=== PATIENT | female | born 1975 | race Caucasian/White ===

== ENCOUNTER → 2018-08-17 08:36 | Outpatient (CLI) | payer BC, SELFPAY ==
--- NOTE | 2018-08-17 08:38 | BI_ITS ---
MAMMOGRAPHY - BILATERAL SCREENING REASON FOR EXAM: Female, 43 years old. Routine annual screening examination. PERTINENT HISTORY: Non-contributory. TECHNIQUE: Digital bilateral breast selam (3D mammographic acquisition) in the CC and MLO projections. 2-D mediolateral oblique (MLO) and craniocaudad (CC) views of both breasts were obtained. CAD: Full Field Digital Mammography with Computer Added Detection was performed. COMPARISON: Comparison is made with prior outside examination dated September 11, 2016. FINDINGS: Breast Composition: The breasts are heterogeneously dense, which may obscure small masses. There are no dominant masses or suspicious calcifications. Stable small bilateral axillary lymph nodes. No other significant abnormalities are identified. There has been no significant change since the prior study. BI/SCREENING MAMM (CAD), BILAT IMPRESSION: Stable bilateral screening mammogram. Yearly follow-up mammogram recommended. (A) ASSESSMENT CATEGORY: BIRADS Category 2: Benign. A letter regarding these results will be sent to the patient by the facility within 30 days. Approximately 10% of breast cancers are not detected by mammography. A normal mammogram should not delay biopsy of a clinically suspicious abnormality. [id number] Electronically Signed: Jarad Aponte MD at 8:38 EST Tel [phone], Service support ,
--- OUTSIDE RECORDS SUMMARY | 2018-11-20 08:58 | XMS RPT_ITS ---
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 Source: [place] 7:49 [facility] REPOSITORY Order Comment: Order added by Discern Expert. TYPE CODE TESTS RESULT OUT OF RANGE REFERENCE UNITS LAB [id number](LO mL/min/1.73 INC) m2 Normal eGFR >60 LAB [id number](LO mL/min/1.73 INC) m2 Normal eGFR AA >60 Performed By: #### [id number] #### RIO [employer] [address] [place] [address] CK Collected: 04/22/2018 Status: F Source: [place] 7:49 [facility] REPOSITORY TYPE CODE TESTS RESULT OUT OF RANGE REFERENCE UNITS LAB [id number](LO 26-140 Int._Unit/L INC) Normal Total CK 73 Performed By: #### [id number] #### RIO [employer] [facility] [place] [address] HEP FUNC PANEL Collected: 04/22/2018 Status: F Source: [place] 7:49 [facility] REPOSITORY TYPE CODE TESTS RESULT OUT OF RANGE REFERENCE UNITS LAB [id number](L 10-40 Int._Unit/L OINC) Normal ALT 26 LAB [id number](L 10-42 Int._Unit/L OINC) Normal AST 20 LAB [id number](L 3.2-5.0 G/DL OINC) Normal Albumin Lvl 4.4 LAB [id number](L 2.0-4.0 G/DL OINC) Normal Globulin 3.1 LAB [id number](L 1.1-1.9 ratio OINC) Normal A/G Ratio 1.4 LAB [id number](L 42-121 Int._Unit/L OINC) Normal Alk Phos 51 LAB [id number](L .00-.20 mg/dL OINC) Normal Bili Direct <.10 LAB [id number](L OINC) Normal Bili Indirect >0.4 Result Comment: No established ranges available for the Indirect Biliruben. LAB [id number](LOINC) 0.2-1.0 mg/dL Normal Bili Total 0.5 LAB [id number](LOINC) 6.4-8.3 G/DL Normal Total Protein 7.5 Performed By: #### [id number] #### [employer]IO [employer] [facility] [place] [address] LIPASE LEVEL Collected: 04/22/2018 Status: F Source: [place] 7:49 [facility] REPOSITORY TYPE CODE TESTS RESULT OUT OF RANGE REFERENCE UNITS LAB [id number](LO 8-57 U/L INC) Normal Lipase Lvl 32 Performed By: #### [id number] #### RIO [employer] [address] [place] [address] ALLERGIES ALLERGIES DATE TYPE / CODE NAME / CODE REACTION SEVERITY SOURCE 08/07/2017 Miscellaneous seasonal Other [place] Allergy/[id number](S Community NOMED CT) Hospital Repository Drug/[id number](SNOM No Known Cheondoism ED CT) Medication [facility] Allergies System Repository ENCOUNTERS ENCOUNTERS ADMIT/DISCHARGE ACCOUNT NUMBER ADMITTING ENCOUNTER LOCATION SOURCE CLASS 09/18/[id number] [facility] ding:[place] System rac Repository 09/18/2018/ [id number] Ambulatory [address] ding:[place] System racRoom: Repository Room 2 09/11/2018 [id number] [facility] ding:LABSPEC Repository 08/17/2018 [id number] [facility] ding:OPBI Repository 07/24/2018/ [id number] Ambulatory [address] ding:AshFam[place] System racRoom: Repository Room 1 07/01/[id number] [facility] ding:[facility] System rac Repository 07/01/2018/ [id number] Sudheer Woodward Ambulatory [address] ding:[facility] System racRoom: Repository Room 1 06/11/2018/ [id number] Mary, [address] ding:[facility] System racRoom: Repository Room 1 05/21/2018/ [id number] Ambulatory [address] ding:[facility]am[facility] System racRoom: Repository Room 1 05/09/2018/ [id number] Marleny Espinosa [facility] [address] [facility] ding:[facility] System Repository 05/09/2018 [id number] Ambulatory [address] [place] [address] Repository 05/08/2018/ [id number] Marleny Espinosa [facility] [address] [facility] ding:[facility] System Repository 05/08/2018 [id number] Ambulatory [address] [place] [address] Repository 05/03/2018/ [id number] Marleny Espinosa Ambulatory [facility] [address] [facility] ding:[facility] System racRoom: Repository Room 1 04/25/2018/ [id number] Marleny Espinosa Ambulatory [facility] [address] [facility] ding:[facility] System racRoom: Repository Room 2 04/22/2018/ [id number] Keegan Lopez [facility] [address] [facility] ding:[facility] EDRoom: System Repository 04/22/2018 [id number] Ambulatory [address] [place] [address] Repository PAYERS PAYERS ENCOUNTER GUARANTOR PAYER SUBSCRIBER SOURCE 09/18/2018 LISETH Catherine Primary LISETH Hernandez MILLERDOB: Insurance:1500 Self MILLERDOB: [facility] PayPolicy Number: [id number] [place], [place] Date:2018-09-18 - [place] [address]Joo: [id number] [phone]: Name:CD:[id number] (HP) (HP) (WP) 09/18/2018 LISETH Catherine Primary LISETH Hernandez MILLERDOB: Insurance:1500 Self MILLERDOB: [facility] PayPolicy Number: [id number] [place] Date:2018-07-24 - [place] [address]Oxz: [id number] [phone]: Name:CD:[id number] (HP) (HP) (WP) 09/11/2018 JOANNE Singleton Primary JOANNE [address] [place] Insurance:ANTHEMPolic MILLERDOB: [place] y [place]: [id number] [id number] Repository [address]Myo: (419) Date:5537-49-93ZK [phone] (HP) [id number], [place] [address]KX: 09/11/2018 Secondary NOT GIVENUNK [place] Insurance:SELF PAY [facility] Number: Effective Repository Date:2018-09-11 08/17/2018 JOANNE Singletno Primary JOANNE [address] [facility] Insurance:ANTHEMPolic MILLERDOB: [place] y Number: [id number] [id number] Repository [address]Feu: (419) Date:1662-78-53TQ [phone] (HP) [id number], [place] [address]BI: 08/17/2018 Secondary NOT GIVENUNK [place] Insurance:SELF PAY [facility] Number: Effective Repository Date:2018-08-01 07/24/2018 LISETH Catherine Primary LISETH Hernandez ELORADOB: Insurance:1500 Self MILLERDOB: [facility] PayPolicy Number: [id number] [place] [facility] [place] Date[facility]2018[place]06[place]11 [place] [address]Siy: [phone] [phone]: Name:CD:[id number] (HP) (HP) (WP) 07/01/2018 LISETH Catherine [facility] JOANNE Waltersaritan ELORADOB: Insurance:1500 MILLERDOB: [facility] ANTHEMPolicy Number: [id number] [place] [facility] [place] Date[place]2018[place]07[place] [address]Xgn: [id number] [phone]: Name:CD:[id number] O (HP) [address] MOLINA ()Tel: [phone]: (WP) [phone] 07/01/2018 LISETH Catherine [facility]leton [facility] MILLERDOB: [facility] ANTHEMPolicy Number: [id number] [place] Date:2018-07[place]01 [place] [address]Nec: [id number] [phone]: Name:CD:[id number] O (HP) [address] (HP)Tel: [phone]: (WP) [phone] 06/11/2018 LISETH Catherine [facility] LISETH [facility] Self MILLERDOB: [facility] PayPolicy Number: [id number] [place] Date:2018-05-21 - [place] [address]Idw: [id number] [phone]: Name:CD:[id number] (HP) (HP) (WP) 05/21/2018 LISETH Catherine [facility] LISETH Catherine [facility] Insurance:[facility] Self MILLERDOB: [facility] PayPolicy Number: [id number] System [place] Date:2018-05-03 - [place] [address]Dza: [id number] [phone]: Name:CD:[id number] (HP) (HP) (WP) 05/09/[address] [facility] Insurance:ANTHEMPolic MILLERDOB: [facility] y Number: Effective [id number] System [place] Date:2018-05-07 - [place] [id number] [address]Kbi: Name:[place] [address]Tbe: MARILEE MOLINA (HP) [phone]: [phone]) (HP) [phone] (WP) 05/09/2018 LISETH Catherine [facility]:AnthemPolic MILLERDOB: [facility] y Number: [id number] Repository [place] [id number] [place], [place] Date:Plan Name:[place], [place] [id number]: [phone]: (HP) (HP) 05/09/2018 Secondary Health system Insurance:[facility] olicy Number: Repository Effective Date:Plan Name:Health 05/08/2018 LISETH Catherine Primary JOANNE Hernandez ELORAB: [facility] y Number: Effective [id number] [place] Date:2018-05-07 - [place] [facility] [place] [id number] [facility] [place] [address]Blg: Name:[place] [address]Tel: [id number], [place] (HP) [phone]: ([phone]) (HP) 000-0000 () 05/08/2018 LISETH MULTANI: [facility] LISETH [facility]: [place] Insurance:[facility] [id number] [facility] y Number: [place] [id number] [place], [place] [id number]: Date:Plan Name:[facility] [id number]: (HP) (HP) 05/03/2018 LISETH Catherine Primary LISETH Hernandez ELORAB: Insurance:[address] [place], [place] [address]B: [facility] PayPolicy Number: [id number] [place] [facility] [place] Date:2018-04-25 [place] [address]Adq: [phone] [address]Qhg: Name:CD:[id number] (HP) (HP) (WP) 04/25/2018 LISETH Catherine [facility] LISETH Catherine [facility] Hospital[facility]: Insurance:1500 Self [facility] PayPolicy Number: [id number] System [place] [facility] [place] Date[place]2018-[place]25 [place] [address]Ukn: [id number] [address]Tii: Name:CD:[id number] (HP) (HP) (WP) 04/22/2018 LISETH Catherine [facility] JOANNE Singleton [facility]: [facility] y Number: Effective [id number] System [place] Date:2018-04-22 - [place] 3972-65-99[place] [address]Bex: Name:Ishmael [facility] [address]Wwm: [id number], [place] (HP) [phone]: [phone]) (HP) [phone] (WP) 04/22/2018 LISETH Catherine [facility]ETH [facility]: Insurance:AnthemPolic [facility]: [facility] y Number: [id number] Repository [place] [id number] [place] Date:Plan Name:[place], [place] [id number]: [phone]: (HP) (HP)
== END ==
PROVIDERS: Family Provider Family Medicine; PCP Family Medicine; Referring Provider Obstetrics & Gynecology; Visit Provider Obstetrics & Gynecology
DX: Z12.31 Encounter for screening mammogram for malignant neoplasm of breast (principal)
CPT/HCPCS: 77063; 77067

== ENCOUNTER → 2018-09-11 15:52 | Outpatient (CLI) | payer BC, SELFPAY | PROVIDERS: Family Provider Family Medicine; PCP Family Medicine; Referring Provider Dermatology; Visit Provider Dermatology | DX: L08.0 Pyoderma (principal); L81.3 Cafe au lait spots; D23.71 Other benign neoplasm of skin of right lower limb, including hip; D48.5 Neoplasm of uncertain behavior of skin; L29.8 Other pruritus; Z71.89 Other specified counseling | CPT/HCPCS: 87070; 87077; 87186; 87205 ==

== ENCOUNTER → 2018-11-12 10:05 | Outpatient (CLI) | payer BC, SELFPAY ==
[2018-11-12 09:31] VITALS: BMI 34.2
[2018-11-12 12:15] LABS: Cholesterol 171 mg/dL (200); Glucose 89 mg/dL (74-106); High Density Lipoprotein 37 mg/dL; Triglycerides 139 mg/dL; Very Low Density Lipoprotein 28 mg/dL (5-40)
[2018-11-12 13:00] LABS: Vitamin D,25 Hydroxy 12.2 ng/mL (29.95-100.01)
[2018-11-15 10:59] LABS: HPV APTIMA, High Risk Negative (Negative)
== END ==
PROVIDERS: Family Provider Family Medicine; PCP Family Medicine; Referring Provider Obstetrics & Gynecology; Visit Provider Obstetrics & Gynecology
DX: Z01.411 Encounter for gynecological examination (general) (routine) with abnormal findings (principal)
CPT/HCPCS: 36415; 80061; 82306; 82947; 87624; 88175; G0145

== ENCOUNTER → 2019-06-10 09:35 | Outpatient (CLI) | payer BC, SELFPAY ==
[2019-04-04 13:46] VITALS: BMI 34.2
--- NOTE | 2019-06-10 09:37 | BI_ITS ---
MAMMOGRAPHY - BILATERAL DIAGNOSTIC REASON FOR EXAM: Female, 44 years old. Screening PERTINENT HISTORY: Non-contributory. BILATERAL DIGITAL MAMMOGRAM WITH TOMOSYNTHESIS: Mediolateraloblique and craniocaudal views demonstrate no evidence of dominant parenchymal masses. No cluster of microcalcifications or architectural distortion is seen. No evidence of skin thickening is identified. There has been no significant change since 08/17/2018. The patient palpates lumps in the right and left breast. Because of the dense internal breast structure a focused targeted breast ultrasound will be performed for additional evaluation. Breast Density: The breast tissue is extremely dense which may lower the sensitivity of mammography. CAD was used to assist in final assessment. IMPRESSION: Dense internal breath structures noted in the breasts bilaterally. Because of the palpable densities noted by the patient in each breast a targeted breast ultrasound will be performed for additional evaluation. FINAL ASSESSMENT: BI-RAD CATEGORY 0 INCOMPLETE: (NEEDS ADDITIONAL IMAGINING EVALUATION) Approximately 10% of breast cancers are not detected by mammography. A normal mammogram should not delay biopsy of a clinically suspicious abnormality. Electronically Signed: Cody Lopez, at 14:30 EDT Tel , Service support , BI/DIAG MAMM W/RAYMON CHANEL
--- NOTE | 2019-06-10 09:37 | US_ITS ---
STUDY: ULTRASOUND BREAST - RIGHT REASON FOR EXAM: Female, 44 years old. Lumps felt in the right and left breast TECHNIQUE: Axial and longitudinal images of the RIGHT breast were performed with a high resolution ultrasound transducer. COMPARISON: Mammogram obtained on 06/10/2019 FINDINGS: RIGHT Breast: The palpable density in the right breast represents a benign simple cyst measuring 7 mm in size. This cyst is anechoic with good through transmission and no other underlying masses or lesions are identified. IMPRESSION: A 7 mm simple cyst is seen at the 7:00 position of the right breast. FINAL ASSESSMENT: BI-RAD CATEGORY II (BENIGN FINDING) YEARLY MAMMOGRAPHY RECOMMENDED Electronically Signed: Cody Lopez, at 15:51 EDT Tel , Service support , STUDY: ULTRASOUND BREAST - LEFT REASON FOR EXAM: Female, 44 years old. Palpable density left breast TECHNIQUE: Axial and longitudinal images of the LEFT breast were performed with a high resolution ultrasound transducer. COMPARISON: Previous mammogram obtained on 06/10/2019 FINDINGS: LEFT Breast: 3 simple cysts are seen in the left breast. The one cystic structure seen at the 2:00 position of the left breast corresponding to the palpable lump measures 5 x 6 x 3 mm in size. A second simple cyst is seen at 12:00 position of the left breast measuring 7 mm x 3 mm in size, and a third lesion is seen at the 12:00 position of the left breast measuring 4 x 4 bx 3 mm in size. US/Breast Limited Unilateral IMPRESSION: 3 simple cysts are noted in the left breast, one of which corresponds to the palpable density in the left breast as described above. FINAL ASSESSMENT: BI-RAD CATEGORY II (BENIGN FINDING) YEARLY MAMMOGRAPHY RECOMMENDED Electronically Signed: Cody Lopez, at 14:55 EDT Tel , Service support ,
== END ==
PROVIDERS: Family Provider Family Medicine; PCP Family Medicine; Referring Provider Obstetrics & Gynecology; Visit Provider Obstetrics & Gynecology
DX: N60.01 Solitary cyst of right breast (principal); N60.02 Solitary cyst of left breast
CPT/HCPCS: 76642; 77062; 77066; G0279

== ENCOUNTER → 2020-06-16 | Outpatient (CLI) | payer BC, SELFPAY ==
[2020-06-16 13:26] VITALS: BMI 31.2
[2020-06-19 03:07] LABS: Chlamydia By Nucleic Acid AMP Negative (Negative)
[2020-06-19 10:04] LABS: Gonococcus By Nucleic Acid AMP Negative (Negative)
== END | disposition home or self-care (01) ==
LOC: LABSPEC 16:54
PROVIDERS: PCP Family Medicine; Visit Provider Nurse Practitioner Women's Health
DX: Z11.3 Encounter for screening for infections with a predominantly sexual mode of transmission (principal); R10.2 Pelvic and perineal pain
CPT/HCPCS: 87070; 87205; 87491; 87591

== ENCOUNTER → 2020-06-30 12:17 | Outpatient (CLI) | payer BC, SELFPAY ==
[2020-06-16 13:26] VITALS: BMI 31.2
--- NOTE | 2020-06-30 12:18 | US_ITS ---
STUDY: ULTRASOUND TRANSVAGINAL CLINICAL: Female, 45 years old. PELVIC PAIN TECHNIQUE: Transvaginal COMPARISON: None. FINDINGS: Normal uterine size measuring 8.2 x 5.2 x 3.6 cm in maximal craniocaudal dimension. There are no myometrial masses. Normal endometrial thickness measuring 5 mm. 1 cm endometrial cyst in the left side of the fundus. 5 mm echogenic mass in the endometrium of the body the uterus.. Normal uterine cervix. Normal right ovary, measuring 3.9 x 2.3 x 2.2 cm. There are multiple follicles without a dominant cyst. Normal left ovary, measuring 3.4 x 1.8 x 1.5 cm. There are multiple follicles without a dominant cyst. 1.2 cm of the cyst in the left adnexa likely consistent with a par ovarian cyst. There is no free fluid in the pelvis. Polycystic ovary disease: No. US/Pelvic (Non ) IMPRESSION: 1. 1 cm endometrial cyst in the left side of the fundus. 2. 5 mm echogenic endometrial mass in the body. 3. 1.2 cm par ovarian cyst of the left adnexa. Electronically Signed: German Landers MD at 15:51 EDT Tel , Service support ,
--- NOTE | 2020-06-30 12:18 | US_ITS ---
STUDY: ULTRASOUND TRANSVAGINAL CLINICAL: Female, 45 years old. PELVIC PAIN TECHNIQUE: Transvaginal COMPARISON: None. FINDINGS: Normal uterine size measuring 8.2 x 5.2 x 3.6 cm in maximal craniocaudal dimension. There are no myometrial masses. Normal endometrial thickness measuring 5 mm. 1 cm endometrial cyst in the left side of the fundus. 5 mm echogenic mass in the endometrium of the body the uterus.. Normal uterine cervix. Normal right ovary, measuring 3.9 x 2.3 x 2.2 cm. There are multiple follicles without a dominant cyst. Normal left ovary, measuring 3.4 x 1.8 x 1.5 cm. There are multiple follicles without a dominant cyst. 1.2 cm of the cyst in the left adnexa likely consistent with a par ovarian cyst. There is no free fluid in the pelvis. Polycystic ovary disease: No. US/Transvaginal Non- IMPRESSION: 1. 1 cm endometrial cyst in the left side of the fundus. 2. 5 mm echogenic endometrial mass in the body. 3. 1.2 cm par ovarian cyst of the left adnexa. Electronically Signed: German Landers MD at 15:51 EDT Tel , Service support ,
== END ==
PROVIDERS: PCP Family Medicine; Referring Provider Nurse Practitioner Women's Health; Visit Provider Nurse Practitioner Women's Health
DX: R10.2 Pelvic and perineal pain (principal)
CPT/HCPCS: 76830; 76856; 93976

== ENCOUNTER → 2020-11-25 11:50 | Outpatient (CLI) | payer BC, MEDICAID, SELFPAY ==
[2020-06-16 13:26] VITALS: BMI 31.2
[2020-11-25 11:23] VITALS: BMI 31.8
--- NOTE | 2020-11-25 11:53 | BI_ITS ---
MAMMOGRAPHY - BILATERAL SCREENING REASON FOR EXAM: Female, 45 years old. Routine annual screening examination. PERTINENT HISTORY: Non-contributory. TECHNIQUE: Digital bilateral breast brina (3D mammographic acquisition) in the CC and MLO projections. 2-D mediolateral oblique (MLO) and craniocaudad (CC) views of both breasts were obtained. CAD: Full Field Digital Mammography with Computer Added Detection was performed. COMPARISON: Comparison is made with prior study 06/10/2019 and 08/17/2018. FINDINGS: Breast Composition: The breasts are heterogeneously dense, which may obscure small masses. There are no dominant masses or suspicious calcifications. Stable benign-appearing bilateral axillary lymph nodes. No other significant abnormalities are identified. There has been no significant change since the prior study. BI/SCRN MAMM (CAD)W/BRINA BILAT IMPRESSION: Stable bilateral screening mammogram. Yearly follow-up mammogram recommended. (A) ASSESSMENT CATEGORY: BIRADS Category 2: Benign. A letter regarding these results will be sent to the patient by the facility within 30 days. Approximately 10% of breast cancers are not detected by mammography. A normal mammogram should not delay biopsy of a clinically suspicious abnormality. [id number] Electronically Signed: Jarad Aponte MD at 13:34 EDT , Service support ,
== END ==
PROVIDERS: PCP Family Medicine; Referring Provider Obstetrics & Gynecology; Visit Provider Obstetrics & Gynecology
DX: Z12.31 Encounter for screening mammogram for malignant neoplasm of breast (principal)
CPT/HCPCS: 77063; 77067

== ENCOUNTER 2021-12-15 09:44 | Outpatient (CLI) | payer BC, MEDICAID, SELFPAY ==
--- NOTE | 2021-12-15 09:45 | BI_ITS ---
MAMMOGRAPHY - BILATERAL SCREENING REASON FOR EXAM: Female, 46 years old. Routine annual screening examination. PERTINENT HISTORY: Non-contributory. TECHNIQUE: Digital bilateral breast brina (3D mammographic acquisition) in the CC and MLO projections. 2-D mediolateral oblique (MLO) and craniocaudad (CC) views of both breasts were obtained. CAD: Full Field Digital Mammography with Computer Added Detection was performed. COMPARISON: Comparison is made with prior study 11/25/2020 and 06/10/2019. FINDINGS: Breast Composition: The breasts are heterogeneously dense, which may obscure small masses. There are no dominant masses or suspicious calcifications. Stable small benign-appearing bilateral axillary lymph nodes. No other significant abnormalities are identified. There has been no significant change since the prior study. BI/SCRN MAMM (CAD)W/BRINA BILAT IMPRESSION: Stable bilateral screening mammogram. Yearly follow-up mammogram recommended. (A) ASSESSMENT CATEGORY: BIRADS Category 2: Benign. A letter regarding these results will be sent to the patient by the facility within 30 days. Approximately 10% of breast cancers are not detected by mammography. A normal mammogram should not delay biopsy of a clinically suspicious abnormality. [id number] Electronically Signed: Jarad Aponte MD at 11:36 EDT ,
== END 2021-12-15 23:59 | disposition home or self-care (01) ==
LOC: OPBI 09:44
PROVIDERS: PCP Family Medicine; Visit Provider Obstetrics & Gynecology
DX: Z12.31 Encounter for screening mammogram for malignant neoplasm of breast (principal)
CPT/HCPCS: 77063; 77067

== ENCOUNTER → 2022-12-25 | Outpatient (CLI) | payer MEDICAID, SELFPAY ==
[2022-12-25 11:22] LABS: Hemoglobin A1c 5.4 % (3.8-5.6)
[2022-12-25 11:29] LABS: Vitamin D,25 Hydroxy 32.6 ng/mL
[2022-12-25 11:35] LABS: ALB/GLOB Ratio 1.1 RATIO (0.9-2.4); AST(SGOT) 25 U/L (15-37); Alanine Aminotransfer ALT/SGPT 52 U/L (13-56); Albumin, Serum 3.6 g/dL (3.2-5.0); Alkaline Phosphatase 57 U/L (45-117); Anion Gap 5 (5-15); BUN 13 mg/dL (7-18); BUN/Creat Ratio 17.4 RATIO (10-20); Calcium,Total 8.6 mg/dL (8.5-10.1); Chloride 104 mmol/L (98-107); Cholesterol 168 mg/dL (200); Creatinine, Serum 0.75 mg/dL (0.55-1.02); EST Glomerular Filtration Rate 88 mL/min (>60); Est Glom Filt Rate - Afr Amer 107 mL/min (>60); Globulin 3.3 g/dL (2.2-4.2); Glucose 98 mg/dL (74-106); High Density Lipoprotein 32 mg/dL; Potassium 3.2 mmol/L (3.5-5.1); Protein, Total 6.9 g/dL (6.4-8.2); Sodium Level 136 mmol/L (136-145); Thyroid Stim Hormone (TSH) 1.43 uIU/mL (0.358-3.74); Triglycerides 172 mg/dL; Very Low Density Lipoprotein 34 mg/dL (5-40)
--- NOTE | 2022-12-25 11:48 | BI_ITS ---
MAMMOGRAPHY - BILATERAL SCREENING REASON FOR EXAM: Female, 47 years old. Routine annual screening examination. PERTINENT HISTORY: Non-contributory. TECHNIQUE: Digital bilateral breast brina (3D mammographic acquisition) in the CC and MLO projections. 2-D mediolateral oblique (MLO) and craniocaudad (CC) views of both breasts were obtained. CAD: Full Field Digital Mammography with Computer Added Detection was performed. COMPARISON: Comparison is made with prior study dated December 15, 2021 and November 25, 2020. FINDINGS: Breast Composition: The breasts are heterogeneously dense, which may obscure small masses. There are no dominant masses or suspicious calcifications. No other significant abnormalities are identified. There has been no significant change since the prior study. BI/SCRN MAMM (CAD)W/BRINA BILAT IMPRESSION: Stable bilateral screening mammogram. Yearly follow-up mammogram recommended. (A) ASSESSMENT CATEGORY: BIRADS Category 1: Negative. A letter regarding these results will be sent to the patient by the facility within 30 days. Approximately 10% of breast cancers are not detected by mammography. A normal mammogram should not delay biopsy of a clinically suspicious abnormality. [id number] Electronically Signed: Jarad Aponte MD at 12:34 EDT ,
[2023-01-01 15:08] LABS: HPV APTIMA, High Risk Negative (Negative)
== END | disposition home or self-care (01) ==
PROVIDERS: PCP Family Medicine; Referring Provider Obstetrics & Gynecology; Visit Provider Obstetrics & Gynecology
DX: Z12.31 Encounter for screening mammogram for malignant neoplasm of breast (principal); E66.9 Obesity, unspecified; Z12.4 Encounter for screening for malignant neoplasm of cervix
CPT/HCPCS: 36415; 77063; 77067; 80053; 80061; 82306; 83036; 84443; 87624; 88175; G0145

== ENCOUNTER 2023-11-29 02:12 | Emergency (ER) | payer MEDICAID, SELFPAY ==
[2023-11-29 02:13] VITALS: BP 132/86; PULSE 85; RESP 16; TEMP 36.6; O2SAT 95; BMI 32.3
--- NOTE | 2023-11-29 02:32 | CT_ITS ---
EXAM: CT ABDOMEN AND PELVIS WITH INTRAVENOUS CONTRAST CLINICAL INDICATION: RUQ pain TECHNIQUE: Helically acquired images were obtained of the abdomen and pelvis with intravenous contrast. CTDIvol = ( 13.55 ) mGy, DLP = ( 824.70 ) mGycm This CT exam was performed using one or more of the following dose reduction techniques: automated exposure control, adjustment of the mA and/or kV according to patient size, and/or use of iterative reconstruction technique. CONTRAST: IV 100mL Isovue-370 COMPARISON: No relevant prior studies available. FINDINGS: LOWER THORAX: Unremarkable. Lung bases are clear. No cardiomegaly. No significant pericardial effusion. ABDOMEN: LIVER: Unremarkable. Homogeneous. No focal mass. GALLBLADDER AND BILE DUCTS: Unremarkable. No calcified gallstones. No gallbladder distention or wall edema. No intra- or extrahepatic biliary ductal dilation. PANCREAS: Unremarkable. No focal cystic or solid mass. SPLEEN: Unremarkable. Normal size without focal cystic or solid mass. ADRENALS: Unremarkable. No nodules. KIDNEYS AND URETERS: Unremarkable. Normal renal size and position. No hydronephrosis. STOMACH AND BOWEL: Unremarkable. No stomach or bowel distention. No focal inflammatory change. PELVIS: APPENDIX: No evidence of acute appendicitis. BLADDER: Bladder is not completely distended but is otherwise unremarkable. REPRODUCTIVE: Small hypodense lesion representing a cystic lesion involving the left myometrium of the uterus. Right ovarian cystic lesion measuring up to 2.3 cm. Peripherally enhancing intrauterine fibroid identified. ABDOMEN and PELVIS: INTRAPERITONEAL SPACE: Unremarkable. No adnexal masses or free fluid. No free air. BONES/JOINTS: Unremarkable. No suspicious lytic or blastic abnormality. SOFT TISSUES: Unremarkable. No discrete abdominal or pelvic wall hernia. VASCULATURE: Unremarkable. Abdominal aorta is non-dilated. LYMPH NODES: Unremarkable. No enlarged lymph nodes. CT/Abdomen/Pelvis W IV Cont ONLY IMPRESSION: 1. No findings to explain right upper quadrant pain. 2. Ancillary findings as above. Electronically Signed: Jaya Heaton MD at 4:50 EDT ,
--- NOTE | 2023-11-29 02:33 | EDS_ITS ---
HPI HPI - GI History of Present Illness Chief Complaint: Abd Pain Narrative Narrative: 48-year-old female past medical history of hypertension, presents with nausea, vomiting, diarrhea, and right upper quadrant abdominal pain/back pain that radiates to the front since Sunday evening, almost 3 days ago. She denies any fevers or chills. She states that she did recently start a weight loss drug as well. She denies any hematuria or dysuria. She has had UTIs in the past but this does not feel like it is similar. Over the last 24 hours she has had 4-5 episodes of diarrhea, and also reports jade colored stool. She is also had nausea and vomiting and vomited 4-5 times without any emesis. She denies any exacerbating or alleviating factors, but a heating pad may help with some of her pain. Past surgical history does include C-sections and uterine ablation. [facility] Medical History Eosinophilic esophagitis Hx of abnormal cervical Pap smear Hypertension Thyroid disorder Home Medications amlodipine 5 mg-benazepril 10 mg capsule (Lotrel) 1 cap PO QDAY 08/07/17 [History Last Taken Unknown] ascorbate calcium (vitamin C) 500 mg tablet 500 mg PO DAILY 12/15/21 [History Last Taken Unknown] cholecalciferol (vitamin D3) 50 mcg (2,000 unit) capsule 50 mcg PO DAILY 12/15/21 [History Last Taken Unknown] levothyroxine 75 mcg capsule 75 mcg PO DAILY 12/15/21 [History Last Taken Unknown] mecobalamin (vitamin B12) 1,000 mcg disintegrating tablet,sublingual 1,000 mcg sublingual DAILY 12/15/21 [History Last Taken Unknown] multivitamin 1 tab PO DAILY 12/15/21 [History Last Taken Unknown] zinc 50 mg tablet 50 mg PO DAILY 12/15/21 [History Last Taken Unknown] potassium chloride 20 mEq tablet,extended release 20 meq PO BID #7 tabs 12/25/22 [Rx Last Taken Unknown] ondansetron 4 mg disintegrating tablet 4 mg PO Q6H PRN nausea and vomiting #20 tabs 11/29/23 [Rx Last Taken Unknown] Allergy/AdvReac Type Severity Reaction Status Date / Time No Known Allergies Allergy Verified 11/29/23 02:16 Family History Mother Cancer lung Father Heart disease Hypertension Cancer Grandmother Diabetes Surgical History H/O LEEP H/O tubal ligation History of 3 sections History of carpal tunnel surgery S/P endometrial ablation Social History Smoking Status: Never smoker Electronic Cigarette Use: with nicotine alcohol intake: current alcohol intake frequency: holidays/special occasions only substance use type: does not use caffeine: Yes (in moderation) Type: carbonated beverages what type of physical activity do you participate in: walking and weight training frequency: 5-6 times per week seatbelt use: always additional social history: seperated additional adopted Waldo 2012 ROS ROS ED ROS Narrative Constitutional: No fever, no chills. HEENT: No sore throat. No neck pain. No loss of vision. No rhinorrhea. Cardiovascular: No chest pain. No palpitations. No pedal edema. Respiratory: No cough, no shortness of breath. Abdominal: Right upper quadrant abdominal pain. Positive nausea and vomiting, 4-5 episodes without hematemesis in the last 24 hours. Positive diarrhea and jade colored stools. Genitourinary: No dysuria. No hematuria. Musculoskeletal: No myalgias. No arthralgias. Neurologic: No headaches. No dizziness. No lightheadedness. Skin: No rash. No change in color. Psychiatric: No depression. No anxiety. EXAM Physical Exam Narrative Exam Narrative: Afebrile. Vital signs noted. HEENT: Normocephalic. Atraumatic. PERRL, EOMI. Neck soft and supple. No point tenderness or step off. Cardiovascular: Regular rate and rhythm. No murmurs, rubs, or gallops appreciated. Respiratory: No tachypnea. Lungs clear to auscultation bilaterally. Gastrointestinal: Abdomen soft, mild tenderness to palpation right upper quadrant, but negative Castillo sign, with normoactive bowel sounds. No rebound or guarding. Neurological: Awake. Alert. Nonfocal, nonlateralizing. Skin: No rash. Normal color. No pallor. Musculoskeletal: No pedal edema. Full range of motion extremities. Const Vital Signs: 11/29/23 02:13 11/29/23 04:12 Temperature 98 F Temperature Source Oral Pulse Rate 85 70 Respiratory Rate 16 16 Blood Pressure 132/86 H 139/90 H Blood Pressure Mean 101 106 Pulse Ox 95 99 Oxygen Delivery Method Room Air Room Air MDM MDM MDM Narrative Medical decision making narrative: In the differential diagnosis would be ureterolithiasis versus pyelonephritis versus gallbladder pathology including cholecystitis or cholelithiasis. I have low suspicion for pancreatitis. She may have gastroenteritis as well. I do not feel test is indicated because she had a uterine ablation. She was bolused normal saline 1 L intravenously and administered ondansetron for her nausea. Ultrasound is currently unavailable so we will start with CT of the abdomen and pelvis with IV contrast, CBC, CMP, and lipase. Urinalysis will also be sent to look for signs of infection. I reviewed her laboratory work and she has a normal white count of 9.2, hemoglobin normal at 14.4, hematocrit 44.7, platelet count normal at 295. Review of her CMP shows normal sodium of 139, potassium 3.8, BUN normal at 15 with creatinine normal at 0.95, glucose appropriately elevated at 98. Lipase is normal at 52 so I do not suspect that she has a pancreatitis as a cause of her nausea and vomiting. Urinalysis is negative for infection, additionally there are 10-25 squamous epithelial cells. I do not feel that antibiotics are indicated. I reviewed the CT of the abdomen pelvis radiology report which shows no acute process, appendix appears normal. There is a right ovarian cyst in the left myometrial cyst, but I do not think that this is the cause of her abdominal pain it is more in the right upper quadrant. There is no acute gallbladder pathology as well. At this point in time, she was given Toradol 15 mg for analgesia. She is feeling improved with her nausea. I feel she can be discharged safely home with follow-up. I do not feel she requires transfer or admission. She was written a prescription for Zofran. I feel that [id number] medications would be adequate for her pain. She will follow-up with her primary care provider. Return instructions reviewed. Disposition is discharged home in stable condition. History & Record Review Discussion w/independent historian: Patient Additional record(s) reviewed:: No prior records Lab Data Attestation: I reviewed the patient's lab results. Labs: Laboratory Results - last 24 hr 11/29/23 11/29/23 02:40 02:45 WBC 9.2 RBC 4.99 Hgb 14.4 Hct 44.7 MCV 89.6 MCH 28.9 MCHC 32.2 RDW Std Deviation 43.5 RDW Coeff of Megan 13.3 Plt Count 295 MPV 9.6 Immature Gran % (Auto) 0.700 Neut % (Auto) 63.5 Lymph % (Auto) 21.7 [place] % (Auto) 8.5 Eos % (Auto) 5.4 H Baso % (Auto) 0.2 Absolute Neuts (auto) 5.8 Absolute Lymphs (auto) 1.99 Nucleated RBC % 0 Sodium 139 Potassium 3.8 Chloride 106 Carbon Dioxide 26.0 Anion Gap 7 BUN 15 Creatinine 0.95 Estim Creat Clear Calc 69.06 Est GFR (MDRD) Af Amer 81 Est GFR (MDRD) Non-Af 67 BUN/Creatinine Ratio 15.8 Glucose 98 Calcium 8.9 Total Bilirubin 0.50 AST 23 ALT 32 Alkaline Phosphatase 51 Total Protein 7.1 Albumin 3.8 Globulin 3.3 Albumin/Globulin Ratio 1.2 Lipase 52 Urine Color Straw Urine Clarity Sl. Cloudy Urine pH 7.0 Ur Specific [place] 1.020 Urine Protein Negative Urine Glucose (UA) Normal Urine Ketones 5 H Urine Occult Blood Negative Urine Nitrite Negative Urine Bilirubin Negative Urine Urobilinogen Normal Ur Leukocyte Esterase Negative Urine RBC 0 SEEN Urine WBC 0 SEEN Ur Squamous Epith Cells 10-25 SEEN Urine Bacteria 2+ Urine Mucus 0 SEEN Radiography Diagnostic Testing: Clinical Impression(s) from Imaging Studies Abdomen/Pelvis CT 11/29/23 02:32 IMPRESSION: 1. No findings to explain right upper quadrant pain. 2. Ancillary findings as above. Electronically Signed: Jaya Heaton MD at 4:50 EDT , Discharge Plan Triage Chief Complaint: Abd Pain ED Provider: Leonardo Hernandez Dx/Rx/DC Orders Clinical Impression: Nausea, vomiting, and diarrhea, Flank pain, Abdominal pain Instructions: ED Abdominal Pain Unkn Cause Fem, ED Diet Vomiting Diarrhea, ED Flank Pain, Uncertain Cause, ED Gastroenteritis, Viral (Adult) Prescriptions: New ondansetron 4 mg tablet,disintegrating 4 mg PO Q6H PRN (Reason: nausea and vomiting) Qty: 20 0RF No Action amlodipine-benazepril [Lotrel] 5-10 mg capsule 1 cap PO QDAY levothyroxine 75 mcg capsule 75 mcg PO DAILY multivitamin Tablet 1 tab PO DAILY cholecalciferol (vitamin D3) 50 mcg (2,000 unit) capsule 50 mcg PO DAILY mecobalamin (vitamin B12) 1,000 mcg tablet,disintegrating 1,000 mcg sublingual DAILY Rx Instructions: place tablet under tongue and allow to dissolve for at least30 secs before swallowing zinc 50 mg tablet 50 mg PO DAILY ascorbate calcium (vitamin C) 500 mg tablet 500 mg PO DAILY potassium chloride 20 mEq tablet extended release 20 meq PO BID Qty: 7 2RF Primary Care Provider: Tc Marie Referrals: Tc Marie MD [Primary Care Provider] - 3-5 Days if not improving Disposition Disposition: Home, Self Care
[2023-11-29 02:44] LABS: Mucous, Urine 0 SEEN /hpf (<or=2+); Red Blood Cells-Urine 0 SEEN /hpf (0-5); White Blood Cells 0 SEEN /hpf (0-5)
[2023-11-29 02:52] LABS: Color, Urine Straw (Yellow); Glucose, Dipstick Normal (Normal); Ketone-Dipstick 5 mg/dl (Negative); Leukocyte Esterase-Dipstick Negative /ul (Negative); Nitrite-Dipstick Negative (Negative); Occult Blood-Urine Negative /ul (Negative); Protein-Dipstick Negative (Negative); Urine Bilirubin Dipstick Negative (Negative); Urine Clarity Sl. Cloudy (Clear); Urine Urobilinogen Normal (Normal)
[2023-11-29 02:52] LABS: Absolute Lymphocyte Count 1.99 X10^3/uL (0.83-4.51); Absolute Neutrophil Count 5.8 X10^3/uL (2.0-7.7); Basophil# 0.02 X10^3/uL; Basophil% 0.2 % (0-1); Eosinophils% 5.4 % (0-5); Hematocrit 44.7 % (37-47); Hemoglobin 14.4 g/dL (12.0-15.0); Lymphocyte # 1.99 X10^3/ul (0.83-4.51); Lymphocyte % 21.7 % (19-41); Mean Corp Hgb Conc 32.2 g/dL (32-36); Mean Corpuscular Hgb 28.9 pg (27.0-32.0); Mean Corpuscular Volume 89.6 fL (81-99); Mean Platelet Vol. 9.6 fl (6.2-12.0); Monocyte# 0.78 X10^3/uL; Monocyte% 8.5 % (0-10); NRBC Flagged by Analyzer 0 % (0-5); Neutrophil # 5.83 X10^3/uL (2.7-7.7); Neutrophil % 63.5 % (47-70); Platelet Count 295 K/mm3 (150-450); RBC Distribution Width CV 13.3 % (11.6-14.6); RBC Distribution Width SD 43.5 fl (35.1-43.9); Red Blood Count 4.99 M/mm3 (4.2-5.4); White Blood Count 9.2 K/mm3 (4.4-11.0)
[2023-11-29] MEDS: 0.9% Normal Saline (1000mL) 1,000 ML 1000 ML IV (03:05)
[2023-11-29] MEDS: Ondansetron 4 MG/2 ML Vial IV (03:05)
[2023-11-29 03:10] LABS: ALB/GLOB Ratio 1.2 RATIO (0.9-2.4); AST(SGOT) 23 U/L (15-37); Alanine Aminotransfer ALT/SGPT 32 U/L (13-56); Albumin, Serum 3.8 g/dL (3.2-5.0); Alkaline Phosphatase 51 U/L (45-117); Anion Gap 7 (5-15); BUN 15 mg/dL (7-18); BUN/Creat Ratio 15.8 RATIO (10-20); Calcium,Total 8.9 mg/dL (8.5-10.1); Chloride 106 mmol/L (98-107); Creatinine, Serum 0.95 mg/dL (0.55-1.02); EST Glomerular Filtration Rate 67 mL/min (>60); Est Glom Filt Rate - Afr Amer 81 mL/min (>60); Estimated Creatinine Clearance 69.06 ml/min; Globulin 3.3 g/dL (2.2-4.2); Glucose 98 mg/dL (74-106); Lipase 52 U/L (13-75); Potassium 3.8 mmol/L (3.5-5.1); Protein, Total 7.1 g/dL (6.4-8.2); Sodium Level 139 mmol/L (136-145)
[2023-11-29 03:15] LABS: Bacteria 2+ /hpf (None Seen); Squamous Epithelial Cells - UA 10-25 SEEN /hpf (5-10)
[2023-11-29] MEDS: Ketorolac 15 MG/ML Vial IV (04:10)
[2023-11-29 04:12] VITALS: BP 139/90; PULSE 70; RESP 16; O2SAT 99
[2023-11-29 05:09] VITALS: BP 118/88; PULSE 73; RESP 16; TEMP 36.8; O2SAT 98
== END 2023-11-29 05:11 | disposition home or self-care (01) ==
PROVIDERS: Emergency Provider Emergency Medicine; PCP Family Medicine; Visit Provider Emergency Medicine
DX: R11.2 Nausea with vomiting, unspecified (principal); R19.7 Diarrhea, unspecified; R10.11 Right upper quadrant pain; F17.290 Nicotine dependence, other tobacco product, uncomplicated
CPT/HCPCS: 74177; 80053; 81001; 83690; 85025; 96361; 96374; 96375; 99282; J7030; Q9967; A4216; J2405

== ENCOUNTER → 2023-12-31 | Outpatient (CLI) | payer MEDICAID, SELFPAY ==
--- NOTE | 2023-12-31 09:32 | BI_ITS ---
MAMMOGRAPHY - BILATERAL SCREENING REASON FOR EXAM: Female, 48 years old. Routine annual screening examination. PERTINENT HISTORY: Non-contributory. TECHNIQUE: Digital bilateral breast brina (3D mammographic acquisition) in the CC and MLO projections. 2-D mediolateral oblique (MLO) and craniocaudad (CC) views of both breasts were obtained. CAD: Full Field Digital Mammography with Computer Added Detection was performed. COMPARISON: Comparison is made with prior study December 25, 2022 and December 15, 2021. FINDINGS: Breast Composition: The breasts are heterogeneously dense, which may obscure small masses. Small nodular densities are seen in the upper central portion of the left breast suggestive of cysts. Correlation with ultrasound recommended. No other significant abnormalities are identified. BI/SCRN MAMM (CAD)W/BRINA BILAT IMPRESSION: Nodular densities are seen in the retroareolar region of the left breast. Correlation with ultrasound is recommended. ASSESSMENT CATEGORY: BIRADS Category 0: Incomplete. Need additional imaging evaluation. A letter regarding these results will be sent to the patient by the facility within 30 days. Approximately 10% of breast cancers are not detected by mammography. A normal mammogram should not delay biopsy of a clinically suspicious abnormality. [id number] Electronically Signed: Jarad Aponte MD at 10:32 EDT ,
[2023-12-31 09:56] LABS: Absolute Neutrophil Count 2.7 X10^3/uL (2.0-7.7); Basophil# 0.01 X10^3/uL; Basophil% 0.2 % (0-1); Eosinophil# 0.43 X10^3/uL; Eosinophils% 7.8 % (0-5); Hematocrit 41.5 % (37-47); Hemoglobin 13.2 g/dL (12.0-15.0); Lymphocyte % 32.7 % (19-41); Mean Corp Hgb Conc 31.8 g/dL (32-36); Mean Corpuscular Hgb 28.8 pg (27.0-32.0); Mean Corpuscular Volume 90.4 fL (81-99); Monocyte# 0.46 X10^3/uL; Monocyte% 8.3 % (0-10); NRBC Flagged by Analyzer 0 % (0-5); Neutrophil # 2.73 X10^3/uL (2.7-7.7); Neutrophil % 49.5 % (47-70); Platelet Count 286 K/mm3 (150-450); RBC Distribution Width CV 13.6 % (11.6-14.6); RBC Distribution Width SD 45.2 fl (35.1-43.9); Red Blood Count 4.59 M/mm3 (4.2-5.4); White Blood Count 5.5 K/mm3 (4.4-11.0)
[2023-12-31 10:16] LABS: Vitamin D,25 Hydroxy 66.8 ng/mL
[2023-12-31 12:05] LABS: Hemoglobin A1c 4.7 % (3.8-5.6)
[2023-12-31 19:11] LABS: ALB/GLOB Ratio 1.2 RATIO (0.9-2.4); AST(SGOT) 15 U/L (15-37); Alanine Aminotransfer ALT/SGPT 27 U/L (13-56); Albumin, Serum 3.7 g/dL (3.2-5.0); Alkaline Phosphatase 51 U/L (45-117); Anion Gap 9 (5-15); BUN 18 mg/dL (7-18); Calcium,Total 8.8 mg/dL (8.5-10.1); Chloride 107 mmol/L (98-107); Cholesterol 161 mg/dL (200); Creatinine, Serum 0.82 mg/dL (0.55-1.02); EST Glomerular Filtration Rate 79 mL/min (>60); Est Glom Filt Rate - Afr Amer 96 mL/min (>60); Estradiol 24.2 pg/mL; Follicle Stimulating Hormone 9.1 mIU/mL; Globulin 3.2 g/dL (2.2-4.2); Glucose 90 mg/dL (74-106); High Density Lipoprotein 41 mg/dL; Potassium 3.8 mmol/L (3.5-5.1); Protein, Total 6.9 g/dL (6.4-8.2); Sodium Level 140 mmol/L (136-145); Thyroid Stim Hormone (TSH) 1.99 uIU/mL (0.358-3.74); Triglycerides 59 mg/dL; Very Low Density Lipoprotein 12 mg/dL (5-40)
== END | disposition home or self-care (01) ==
LOC: OPBI 09:32
PROVIDERS: PCP Family Medicine; Referring Provider Obstetrics & Gynecology; Visit Provider Obstetrics & Gynecology
DX: Z12.31 Encounter for screening mammogram for malignant neoplasm of breast (principal); Z13.0 Encounter for screening for diseases of the blood and blood-forming organs and certain disorders involving the immune mechanism; Z13.1 Encounter for screening for diabetes mellitus; Z13.220 Encounter for screening for lipoid disorders; Z13.21 Encounter for screening for nutritional disorder; Z13.29 Encounter for screening for other suspected endocrine disorder; R93.89 Abnormal findings on diagnostic imaging of other specified body structures
CPT/HCPCS: 36415; 77063; 77067; 80053; 80061; 82306; 82670; 83001; 83036; 84443; 85025

== ENCOUNTER → 2024-01-04 | Outpatient (CLI) | payer MEDICAID, SELFPAY ==
--- NOTE | 2024-01-04 09:01 | US_ITS ---
STUDY: ULTRASOUND BREAST - LEFT REASON FOR EXAM: Female, 48 years old. Abnormal screening mammogram. TECHNIQUE: Axial and longitudinal images of the LEFT breast were performed with a high resolution ultrasound transducer. # OF IMAGES: 47 COMPARISON: Comparison is made with prior mammogram dated December 31, 2023 and prior sonogram of the left breast dated June 10, 2019. FINDINGS: LEFT Breast: The retroareolar region of the breast was examined with ultrasound. There is a 1.9 cm x 1.3 cm x 0.9 cm complex solid and cystic mass in the retroareolar region. Biopsy is recommended. There is also evidence of mildly dilated ducts. 3 cysts are seen in the region. The largest measures 1 cm x 1.3 cm x 0.6 cm. US/Breast Limited Unilateral IMPRESSION: Complex solid and cystic nodule in the retroareolar region of the left breast measuring 1.9 cm x 1.3 cm x 0.9 cm. Biopsy is recommended. Small retroareolar cysts and dilated ducts. ASSESSMENT CATEGORY: BIRADS Category 4: Suspicious - Biopsy Should Be Considered. A letter regarding these results will be sent to the patient by the facility within 30 days. Electronically Signed: Jarad Aponte MD at 14:15 EDT ,
--- NOTE | 2024-01-04 14:08 | US_ITS ---
HISTORY: Thickened endometrium. TECHNIQUE: Transabdominal and transvaginal pelvic ultrasound was performed with arevalo scale and color Doppler evaluation. 123 images. COMPARISON: 06/30/2020. FINDINGS: UTERUS: 7.7 x 3.7 x 4.8 cm. Heterogeneous echotexture. 1.4 x 1.4 x 1.5 cm round heterogeneous lesion anteriorly. 5 x 7 x 10 mm cyst inferiorly. Small nabothian cyst also noted. ENDOMETRIAL THICKNESS: 4 mm. 1.2 x 1.2 x 1.4 cm endometrial cyst. RIGHT OVARY: 1.4 x 1.8 x 3.5 cm with small follicles. No adnexal masses. LEFT OVARY: 1.6 x 2.2 x 2.9 cm with small follicles. No adnexal masses. FREE FLUID: None. URINARY BLADDER: Unremarkable at 99 cc. US/Pelvic w/ Transvaginal IMPRESSION: Small uterine leiomyoma. Small cyst in the lower uterine segment. Small endometrial cyst again seen. Electronically Signed: Tejal Tomas MD at 12:23 EDT ,
== END | disposition home or self-care (01) ==
LOC: OPUS 08:59
PROVIDERS: PCP Family Medicine; Referring Provider Obstetrics & Gynecology; Visit Provider Obstetrics & Gynecology
DX: R93.89 Abnormal findings on diagnostic imaging of other specified body structures (principal); R92.8 Other abnormal and inconclusive findings on diagnostic imaging of breast
CPT/HCPCS: 76642; 76830; 76856

== ENCOUNTER → 2024-01-09 | Outpatient (CLI) | payer MEDICAID, SELFPAY ==
--- NOTE | 2024-01-09 13:10 | BRBX_PTH ---
PATIENT: LISETH VARGAS LOC: [facility] U#:[id number] AGE/SX: 48/F ROOM: RE01/09/[address]: Dr. Roseline Maxwell MD : 1975 BED: DIS: 01/09/2024 SPEC #: [id number] RECD: 01/09/24 16:09 STATUS: JUDE RAMY #: [id number] TRAMAINE: 01/09/24 13:[address]: Roseline Maxwell DEPT: SURGICAL PATHOLOGY RECD BY: Heron Samson ENTERED: 01/10/24 08:24 SP TYPE: BREAST BX OTHR DR: Dr. Tc Marie MD Tissues: Left breast, NOS Procedures: Surgery Specimen Level IV HEADER OPERATION: Left breast mass PRE-OP DIAGNOSIS: Left breast mass TISSUE SUBMITTED: Left breast mass retroareolar MICROSCOPIC DIAGNOSIS Left breast mass, retroareolar, core biopsy: Fragments of benign breast tissue with dense fibrosis. Negative for atypia and malignancy. See comment. / 01/11/2024 COMMENT Correlation with clinical, radiologic findings and appropriate follow up are necessary. MICROSCOPIC DESCRIPTION Slides are reviewed. GROSS DESCRIPTION Received in fixative is one container labeled with the patient's name and designated Left breast. The specimen consists of multiple irregular fragments of monreal-yellow fibroadipose tissue that in aggregate measure 1.0 x 0.2 x 0.1 cm. The specimen is totally submitted in one cassette. / 01/10/24 TC:5 CPT:87911
== END | disposition home or self-care (01) ==
LOC: LABSPEC 16:15
PROVIDERS: PCP Family Medicine; Referring Provider Surgery; Visit Provider Surgery
DX: N63.20 Unspecified lump in the left breast, unspecified quadrant (principal)
CPT/HCPCS: 88305

== ENCOUNTER → 2024-02-22 | Outpatient (CLI) | payer MEDICAID, SELFPAY ==
[2024-02-22 16:17] LABS: Vitamin B12 959 pg/mL (211-911)
== END | disposition home or self-care (01) ==
LOC: LAB 15:09
PROVIDERS: PCP Family Medicine; Referring Provider Obstetrics & Gynecology; Visit Provider Obstetrics & Gynecology
DX: E66.9 Obesity, unspecified (principal); R93.89 Abnormal findings on diagnostic imaging of other specified body structures; E53.8 Deficiency of other specified B group vitamins
CPT/HCPCS: 36415; 82607; 82670; 84402; 84403

== ENCOUNTER → 2024-03-27 | Outpatient (CLI) | payer MEDICAID, SELFPAY ==
[2024-03-27 10:33] LABS: Absolute Lymphocyte Count 2.09 X10^3/uL (0.83-4.51); Absolute Neutrophil Count 3.3 X10^3/uL (2.0-7.7); Basophil# 0.02 X10^3/uL; Basophil% 0.3 % (0-1); Eosinophil# 0.41 X10^3/uL; Eosinophils% 6.5 % (0-5); Hematocrit 43.2 % (37-47); Hemoglobin 13.9 g/dL (12.0-15.0); Lymphocyte # 2.09 X10^3/ul (0.83-4.51); Lymphocyte % 33.2 % (19-41); Mean Corp Hgb Conc 32.2 g/dL (32-36); Mean Corpuscular Hgb 28.9 pg (27.0-32.0); Mean Corpuscular Volume 89.8 fL (81-99); Mean Platelet Vol. 9.6 fl (6.2-12.0); Monocyte# 0.48 X10^3/uL; Monocyte% 7.6 % (0-10); NRBC Flagged by Analyzer 0 % (0-5); Neutrophil # 3.29 X10^3/uL (2.7-7.7); Neutrophil % 52.2 % (47-70); Platelet Count 287 K/mm3 (150-450); RBC Distribution Width CV 13.3 % (11.6-14.6); RBC Distribution Width SD 43.5 fl (35.1-43.9); Red Blood Count 4.81 M/mm3 (4.2-5.4); White Blood Count 6.3 K/mm3 (4.4-11.0)
[2024-03-27 11:10] LABS: Vitamin B12 834 pg/mL (211-911); Vitamin D,25 Hydroxy 73.7 ng/mL
[2024-03-27 11:14] LABS: ALB/GLOB Ratio 1.1 RATIO (0.9-2.4); AST(SGOT) 14 U/L (15-37); Alanine Aminotransfer ALT/SGPT 23 U/L (13-56); Alkaline Phosphatase 52 U/L (45-117); Anion Gap 6 (5-15); BUN 18 mg/dL (7-18); BUN/Creat Ratio 19.3 RATIO (10-20); Calcium,Total 8.9 mg/dL (8.5-10.1); Chloride 106 mmol/L (98-107); Creatinine, Serum 0.94 mg/dL (0.55-1.02); EST Glomerular Filtration Rate 68 mL/min (>60); Est Glom Filt Rate - Afr Amer 82 mL/min (>60); Globulin 3.7 g/dL (2.2-4.2); Glucose 86 mg/dL (74-106); Potassium 3.6 mmol/L (3.5-5.1); Protein, Total 7.7 g/dL (6.4-8.2); Sodium Level 138 mmol/L (136-145); T4 Free Direct 1.08 ng/dL (0.76-1.46); Thyroid Stim Hormone (TSH) 2.33 uIU/mL (0.358-3.74)
== END | disposition home or self-care (01) ==
PROVIDERS: PCP Family Medicine; Referring Provider Nurse Practitioner Family; Visit Provider Nurse Practitioner Family
DX: L65.9 Nonscarring hair loss, unspecified (principal)
CPT/HCPCS: 36415; 80053; 82306; 82607; 84439; 84443; 85025

== ENCOUNTER → 2024-07-16 | Outpatient (CLI) | payer MEDICAID, SELFPAY ==
--- NOTE | 2024-07-16 10:49 | US_ITS ---
STUDY: ULTRASOUND BREAST - LEFT REASON FOR EXAM: Female, 49 years old. Six-month follow-up from prior ultrasound-guided breast biopsy. TECHNIQUE: Axial and longitudinal images of the LEFT breast were performed with a high resolution ultrasound transducer. # OF IMAGES: 16 COMPARISON: Comparison is made with prior sonogram dated January 04, 2024. FINDINGS: LEFT Breast: The retroareolar region of the breast was examined with ultrasound. A tissue clip marker from prior biopsy is seen within a 1.6 cm x 0.8 cm right 0.7 cm complex cystic nodule in the superior retroareolar region of the breast. There is also evidence of dilated lateral areolar ducts. US/Breast Limited Unilateral IMPRESSION: Tissue clip marker is seen within a complex cystic structure in the retroareolar region of the breast with a clip in it. This measures 1.6 cm x 0.8 cm x 0.76. ASSESSMENT CATEGORY: BIRADS Category 2: Benign. A letter regarding these results will be sent to the patient by the facility within 30 days. Electronically Signed: Jarad Aponte MD at 14:11 EST ,
== END | disposition home or self-care (01) ==
LOC: OPUS 10:48
PROVIDERS: PCP Family Medicine; Referring Provider Surgery; Visit Provider Surgery
DX: N63.20 Unspecified lump in the left breast, unspecified quadrant (principal)
CPT/HCPCS: 76642

== ENCOUNTER → 2025-03-23 | Outpatient (CLI) | payer OTHER, SELFPAY ==
--- NOTE | 2025-03-23 08:30 | BI_ITS ---
EXAM: SCRN MAMM (CAD)W/BRINA BILAT DATE: 03/23/2025 CLINICAL HISTORY: F, Age 50 y/o , SCREENING FOR BREAST CANCER TECHNIQUE: SCRN MAMM (CAD)W/BRINA BILAT COMPARISON: Prior exam(s) dated 12/31/2023 and 12/25/2022. Breast ultrasounds dated 07/16/2024 and 01/04/2024 were also reviewed. FINDINGS: TISSUE DENSITY: The breasts are heterogeneously dense, which may obscure small masses. Bilateral Breast Mammographic Findings: Benign-appearing round microcalcifications are seen in both breasts. A radiopaque clip is seen in the superior outer, far anterior aspect of the left breast. An 8 mm, partially obscured, isodense mass is seen at this location and was biopsied and shown to represent a benign process. No suspicious masses, suspicious cluster of microcalcifications, architectural distortion or secondary signs of malignancy is identified in either breast. BI/SCRN MAMM (CAD)W/BRINA BILAT IMPRESSION: Benign screening mammogram. OVERALL FINAL ASSESSMENT BI-RADS 2: BENIGN RECOMMENDATION: Routine annual follow-up in 1 Year A letter with findings and recommendations will be mailed to the patient. Reading Location: [id number]
== END | disposition home or self-care (01) ==
LOC: OPBI 08:28
PROVIDERS: PCP Family Medicine; Referring Provider Obstetrics & Gynecology; Visit Provider Obstetrics & Gynecology
DX: Z12.31 Encounter for screening mammogram for malignant neoplasm of breast (principal); N89.8 Other specified noninflammatory disorders of vagina
CPT/HCPCS: 77063; 77067; 87070; 87205